=== PATIENT | female | born 1990 | race Caucasian/White ===

== ENCOUNTER 2018-02-11 23:55 | Emergency (ER) | payer MEDICAID, OTHER | END 2018-02-12 02:52 | disposition home or self-care (01) | LOC: FTE 23:55 | DX: H60.93 Unspecified otitis externa, bilateral (principal); J20.9 Acute bronchitis, unspecified | CPT/HCPCS: 71045; 99283-25 ==

== ENCOUNTER 2018-11-27 06:27 | Inpatient (IN) | payer OTHER, MEDICAID ==
[2018-11-27] MEDS ORDERED: LACTATED RINGER'S 1,000 ML IV ×2 (06:48→08:21)
[2018-11-27] MEDS ORDERED: CARBOPROST 250 MCG INJ IM (07:00)
[2018-11-27] MEDS ORDERED: MISOPROSTOL 200 MCG TAB PR (07:00)
[2018-11-27] MEDS ORDERED: IBUPROFEN 600 MG TAB PO ×2 (07:00→08:30)
[2018-11-27] MEDS ORDERED: BUTORPHANOL 2 MG INJ IV (07:00)
[2018-11-27] MEDS ORDERED: METHYLERGONOVINE 0.2 MG INJ IM (07:00)
[2018-11-27] MEDS ORDERED: LIDOCAINE 1% (MPF) 30 ML INJ INJ (07:00)
[2018-11-27] MEDS ORDERED: OXYTOCIN 30 UNITS/LR 500 ML IV ×3 (07:00→09:00)
[2018-11-27 07:23] LABS: ADD MAN DIFF? NO
[2018-11-27 07:26] LABS: BASOPHIL # 0.1 10^3/ul (0.0-0.1); BASOPHILS % 0.7 % (0.0-2.0); EOSINOPHILS # 0.2 10^3/ul (0.0-0.5); EOSINOPHILS % 1.8 % (0.0-7.0); HEMATOCRIT 35.6 % (37.0-47.0); HEMOGLOBIN 12.3 g/dl (12.0-16.0); LYMPHOCYTES # 2.8 10^3/ul (0.8-2.9); LYMPHOCYTES % 28.6 % (15.0-51.0); MEAN CORPUSCULAR HEMOGLOBIN 31.2 pg (29.0-33.0); MEAN CORPUSCULAR HGB CONC 34.6 g/dl (32.0-37.0); MEAN CORPUSCULAR VOLUME 90.4 fl (82.0-101.0); MEAN PLATELET VOLUME 11.9 fl (7.4-10.4); MONOCYTE # 0.5 10^3/ul (0.3-0.9); MONOCYTES % 5.5 % (0.0-11.0); NEUTROPHILS % 62.5 % (39.0-77.0); PLATELET COUNT 211 10^3/UL (140-415); RED BLOOD COUNT 3.94 10^6/ul (4.20-5.40); RED CELL DISTRIBUTION WIDTH 13.2 % (11.5-14.5)
[2018-11-27 07:26] LABS: WHITE BLOOD COUNT 9.6 10^3/ul (4.8-10.8)
[2018-11-27] MEDS ORDERED: MISOPROSTOL 25 MCG CAPSULE VAG (07:30)
[2018-11-27 07:46] LABS: INR 0.93; PROTIME 12.6 Sec (11.9-14.9)
[2018-11-27 07:47] LABS: PARTIAL THROMBOPLASTIN TIME 28.7 Sec (23.0-35.0)
[2018-11-27] MEDS: LACTATED RINGER'S 1,000 ML IV ×3 (08:12→23:05)
[2018-11-27] MEDS: AMPICILLIN 2 GM/NS (PMX) 100 ML IV (08:27)
[2018-11-27] MEDS: MISOPROSTOL 50 MCG CAPSULE PO ×3 (08:52→17:00)
[2018-11-27] MEDS ORDERED: MISOPROSTOL 50 MCG CAPSULE PO (09:00)
[2018-11-27 09:29] LABS: AMPHETAMINE/METHAMPHETAMINE Negative (NEGATIVE); BARBITURATES Negative (NEGATIVE); BENZODIAZEPINES Negative (NEGATIVE); CANNABINOIDS Negative (NEGATIVE); COCAINE Negative (NEGATIVE); OPIATES Negative (NEGATIVE)
[2018-11-27] MEDS ORDERED: AMPICILLIN 1 GM/NS (PMX) 50 ML IV (11:00)
[2018-11-27] MEDS: METHADONE 10 MG TAB PO (14:56)
[2018-11-27 16:38] LABS: RAPID PLASMA REAGIN NONREACTIVE (NR)
[2018-11-28] MEDS: MISOPROSTOL 50 MCG CAPSULE PO ×2 (00:05→07:54)
[2018-11-28] MEDS: LACTATED RINGER'S 1,000 ML IV ×3 (03:56→14:30)
[2018-11-28] MEDS: METHADONE 10 MG TAB PO ×3 (08:05→23:29)
[2018-11-28] MEDS ORDERED: CEFAZOLIN 2 GM/50 ML (PMX) 50 ML IVPB (12:00)
[2018-11-28 14:24] LABS: HEPATITIS B SURFACE ANTIGEN NEGATIVE (NEGATIVE)
[2018-11-28] MEDS: CITRIC ACID/NA CITRATE 30 ML CUP PO (15:00)
[2018-11-28] MEDS ORDERED: KETOROLAC 30 MG INJ (16:28)
[2018-11-28] MEDS ORDERED: METOCLOPRAMIDE 10 MG INJ (16:28)
[2018-11-28] MEDS ORDERED: ONDANSETRON 4 MG INJ (16:28)
[2018-11-28] MEDS ORDERED: morphine SULFATE/PF (10 MG/10 ML) INJ (16:28)
[2018-11-28] MEDS ORDERED: NACL 0.9% 3 ML SYG IV (16:30)
[2018-11-28] MEDS ORDERED: METHYLERGONOVINE 0.2 MG INJ IM (16:30)
[2018-11-28] MEDS ORDERED: HYDROCODONE/APAP (5/325) TAB PO (16:30)
[2018-11-28] MEDS ORDERED: CARBOPROST 250 MCG INJ IM (16:30)
[2018-11-28] MEDS ORDERED: MISOPROSTOL 200 MCG TAB PR (16:30)
[2018-11-28] MEDS ORDERED: OXYTOCIN 30 UNITS/LR 500 ML IV ×2 (16:30→17:16)
[2018-11-28] MEDS ORDERED: KETOROLAC 30 MG INJ IV ×2 (17:30)
[2018-11-28] MEDS ORDERED: ONDANSETRON 4 MG INJ IV ×2 (17:30)
[2018-11-28] MEDS ORDERED: NALOXONE (0.4 MG/ML) INJ IV (17:30)
[2018-11-28] MEDS ORDERED: MEPERIDINE 25 MG INJ IV (17:30)
[2018-11-28] MEDS ORDERED: DIPHENHYDRAMINE 50 MG INJ IV ×2 (17:30)
[2018-11-28] MEDS ORDERED: morphine 2 MG INJ IV ×3 (17:30)
[2018-11-28] MEDS: OXYTOCIN 30 UNITS/LR 500 ML IV ×2 (17:41→20:21)
[2018-11-28] MEDS: morphine 2 MG INJ IV ×4 (20:43→22:11)
[2018-11-28] MEDS ORDERED: METHADONE 10 MG TAB PO (21:00)
[2018-11-29] MEDS: CEFAZOLIN 1 GM/50 ML (PMX) 50 ML IVPB ×3 (00:18→08:42)
[2018-11-29] MEDS: KETOROLAC 30 MG INJ IV ×3 (01:20→15:27)
[2018-11-29] MEDS: LACTATED RINGER'S 1,000 ML IV ×2 (04:27→13:41)
[2018-11-29] MEDS: morphine 2 MG INJ IV ×2 (05:54→10:37)
[2018-11-29 08:13] LABS: ADD MAN DIFF? NO
[2018-11-29 08:14] LABS: BASOPHIL # 0.1 10^3/ul (0.0-0.1); BASOPHILS % 0.5 % (0.0-2.0); EOSINOPHILS % 0.3 % (0.0-7.0); HEMATOCRIT 32.1 % (37.0-47.0); HEMOGLOBIN 11.1 g/dl (12.0-16.0); LYMPHOCYTES # 1.4 10^3/ul (0.8-2.9); LYMPHOCYTES % 10.9 % (15.0-51.0); MEAN CORPUSCULAR HEMOGLOBIN 31.4 pg (29.0-33.0); MEAN CORPUSCULAR HGB CONC 34.6 g/dl (32.0-37.0); MEAN CORPUSCULAR VOLUME 90.7 fl (82.0-101.0); MEAN PLATELET VOLUME 11.9 fl (7.4-10.4); MONOCYTE # 0.9 10^3/ul (0.3-0.9); MONOCYTES % 6.5 % (0.0-11.0); NEUTROPHIL # 10.5 10^3/ul (1.6-7.5); NEUTROPHILS % 81.2 % (39.0-77.0); PLATELET COUNT 158 10^3/UL (140-415); RED BLOOD COUNT 3.54 10^6/ul (4.20-5.40); RED CELL DISTRIBUTION WIDTH 13.4 % (11.5-14.5)
[2018-11-29] MEDS: METHADONE 10 MG TAB PO ×2 (10:06→21:13)
[2018-11-29] MEDS: HYDROCODONE/APAP (5/325) TAB PO (18:04)
[2018-11-29] MEDS: OXYCODONE/ACETAMINOPHEN (5/325) TAB PO (20:34)
[2018-11-29] MEDS: LANOLIN HPA 1 PKT TOP (21:16)
[2018-11-30] MEDS: OXYCODONE/ACETAMINOPHEN (5/325) TAB PO ×4 (03:14→21:38)
[2018-11-30] MEDS: KETOROLAC 30 MG INJ IV ×2 (03:15→15:35)
[2018-11-30] MEDS: METHADONE 10 MG TAB PO ×2 (09:02→21:05)
[2018-11-30] MEDS: MINERAL OIL LIGHT 10 ML VIAL TOP (12:24)
[2018-11-30] MEDS ORDERED: KETOROLAC 30 MG INJ IV (21:00)
[2018-11-30] MEDS: IBUPROFEN 600 MG TAB PO (21:38)
[2018-12-01] MEDS: IBUPROFEN 600 MG TAB PO ×4 (04:49→23:36)
[2018-12-01] MEDS: OXYCODONE/ACETAMINOPHEN (5/325) TAB PO ×4 (04:50→23:37)
[2018-12-01] MEDS: METHADONE 10 MG TAB PO ×2 (09:12→18:49)
[2018-12-01] MEDS: BISACODYL 10 MG SUPP PR (17:42)
[2018-12-02] MEDS: METHADONE 10 MG TAB PO ×2 (02:22→10:27)
[2018-12-02] MEDS: IBUPROFEN 600 MG TAB PO (05:42)
[2018-12-02] MEDS: OXYCODONE/ACETAMINOPHEN (5/325) TAB PO (05:43)
[2018-12-02] MEDS: DIPHTH/TET/ACEL PERTUSS (ADULT) 0.5 ML VIAL IM* (10:28)
== END 2018-12-02 13:00 | disposition home or self-care (01) | DRG 788 ==
LOC: L-D 11-28 16:20 → PP1 11-28 21:19 → L-D 06:27
PROVIDERS: Obstetrics & Gynecology
PROC: 3E0P7GC Introduction of Other Therapeutic Substance into Female Reproductive, Via Natural or Artificial Opening (ICD-10-PCS; 2018-11-27 06:00)
PROC: 10D00Z1 Extraction of Products of Conception, Low, Open Approach (ICD-10-PCS; principal; 2018-11-28 16:30)
DX: O99.824 Streptococcus B carrier state complicating childbirth (principal); O61.0 Failed medical induction of labor; O69.81X0 Labor and delivery complicated by cord around neck, without compression, not applicable or unspecified; Z3A.39 39 weeks gestation of pregnancy; Z37.0 Single live birth; Z23 Encounter for immunization
CPT/HCPCS: 76815; 76818; 80307; 85025; 85610; 85730; 86592; 86850; 86900; 86901; 87340; 90715; 99464